=== PATIENT | female | born 1970 | race Caucasian/White ===

== ENCOUNTER 2017-11-05 21:54 | Inpatient (IN) | payer OTHER ==
[2017-11-05] MEDS ORDERED: DOCUSATE SODIUM 100 MG CAP PO (23:30)
[2017-11-05] MEDS ORDERED: NITROGLYCERIN (SL) 0.4 MG TAB SL (23:30)
[2017-11-05] MEDS ORDERED: morphine 2 MG INJ IV (23:30)
[2017-11-05] MEDS ORDERED: ACETAMINOPHEN 325 MG TAB PO (23:30)
[2017-11-05] MEDS ORDERED: ONDANSETRON 4 MG INJ IV (23:30)
[2017-11-05] MEDS ORDERED: BISACODYL (EC) 5 MG TAB PO (23:30)
[2017-11-05] MEDS: METOPROLOL 5 MG INJ IV (23:39)
[2017-11-05] MEDS: NACL 0.9% 3 ML SYG IV (23:42)
[2017-11-05 23:53] LABS: ADD MAN DIFF? NO
[2017-11-05 23:55] LABS: BASOPHILS % 0.2 % (0.0-2.0); HEMATOCRIT 44.1 % (37.0-47.0); HEMOGLOBIN 14.3 g/dl (12.0-16.0); LYMPHOCYTES % 6.1 % (15.0-51.0); MEAN CORPUSCULAR HEMOGLOBIN 27.7 pg (29.0-33.0); MEAN CORPUSCULAR HGB CONC 32.4 g/dl (32.0-37.0); MEAN CORPUSCULAR VOLUME 85.5 fl (82.0-101.0); MEAN PLATELET VOLUME 11.8 fl (7.4-10.4); MONOCYTE # 0.8 10^3/ul (0.3-0.9); MONOCYTES % 4.5 % (0.0-11.0); NEUTROPHIL # 14.8 10^3/ul (1.6-7.5); NEUTROPHILS % 88.2 % (39.0-77.0); PLATELET COUNT 440 10^3/UL (140-415); RED BLOOD COUNT 5.16 10^6/ul (4.20-5.40); RED CELL DISTRIBUTION WIDTH 17.9 % (11.5-14.5)
[2017-11-05 23:55] LABS: WHITE BLOOD COUNT 16.8 10^3/ul (4.8-10.8)
[2017-11-06 00:05] LABS: HEMOGLOBIN A1C 7.2 % (0-5.9)
[2017-11-06 00:14] LABS: ALANINE AMINOTRANSFERASE 25 IU/L (13-69); ALBUMIN 3.8 g/dl (3.3-4.9); ALBUMIN/GLOBULIN RATIO 1.11; ALKALINE PHOSPHATASE 108 IU/L (42-121); ASPARTATE AMINO TRANSFERASE 14 IU/L (15-46); BILIRUBIN,INDIRECT 0.4 mg/dl (0-1.1); BILIRUBIN,TOTAL 0.4 mg/dl (0.2-1.3); BLOOD UREA NITROGEN 43 mg/dl (7-20); CALCIUM 10.2 mg/dl (8.4-10.2); CHLORIDE 80 mmol/L (97-110); CREATININE 0.96 mg/dl (0.44-1.00); GLUCOSE 248 mg/dl (70-220); MAGNESIUM 1.5 mg/dl (1.7-2.5); POTASSIUM 3.2 mmol/L (3.5-5.1); SODIUM 138 mmol/L (135-144); TOTAL PROTEIN 7.2 g/dl (6.1-8.1)
[2017-11-06 00:24] LABS: B-TYPE NATRIURETIC PEPTIDE 2060 PG/ML (0-125)
[2017-11-06 00:26] LABS: CK-MB 0.53 ng/ml (0.0-2.4)
[2017-11-06 00:38] LABS: ANION GAP 16 (8-16); CREATINE KINASE < 20 IU/L (23-200); TROPONIN-I < 0.012 ng/ml (0.00-0.12)
[2017-11-06 00:40] LABS: CARBON DIOXIDE 45 mmol/L (21-31)
[2017-11-06 00:45] LABS: THYROID STIMULATING HORMONE 0.947 MIU/L (0.465-4.680)
[2017-11-06] MEDS ORDERED: DEXTROSE 50% 50 ML SYRINGE IV ×2 (04:00)
[2017-11-06] MEDS ORDERED: GLUCOSE GEL 15 GRAM TUBE PO ×2 (04:00)
[2017-11-06] MEDS: INSULIN ASPART [NOVOLOG] 3 ML PEN SC ×6 (04:00→22:16)
[2017-11-06] MEDS ORDERED: GLUCAGON 1 MG INJ IM (04:00)
[2017-11-06] MEDS ORDERED: GLUCOSE GEL 15 GRAM TUBE BUCCAL (04:00)
[2017-11-06] MEDS: ALBUTEROL/IPRATROPIUM (NEB) 3 ML AMP HHN ×4 (09:00→20:47)
[2017-11-06] MEDS: METOPROLOL 5 MG INJ IV (09:19)
[2017-11-06] MEDS: predniSONE 20 MG TAB PO (09:19)
[2017-11-06] MEDS: POTASSIUM CHLORIDE (SR) 20 MEQ TAB PO (09:19)
[2017-11-06 09:47] LABS: ADD MAN DIFF? NO
[2017-11-06 09:55] LABS: BASOPHILS % 0.1 % (0.0-2.0); HEMATOCRIT 45.1 % (37.0-47.0); HEMOGLOBIN 14.8 g/dl (12.0-16.0); LYMPHOCYTES # 1.4 10^3/ul (0.8-2.9); LYMPHOCYTES % 8.1 % (15.0-51.0); MEAN CORPUSCULAR HEMOGLOBIN 28.2 pg (29.0-33.0); MEAN CORPUSCULAR HGB CONC 32.8 g/dl (32.0-37.0); MEAN CORPUSCULAR VOLUME 86.1 fl (82.0-101.0); MEAN PLATELET VOLUME 12.1 fl (7.4-10.4); MONOCYTE # 0.8 10^3/ul (0.3-0.9); MONOCYTES % 4.7 % (0.0-11.0); NEUTROPHIL # 14.4 10^3/ul (1.6-7.5); NEUTROPHILS % 86.4 % (39.0-77.0); PLATELET COUNT 452 10^3/UL (140-415); RED BLOOD COUNT 5.24 10^6/ul (4.20-5.40); RED CELL DISTRIBUTION WIDTH 17.5 % (11.5-14.5)
[2017-11-06 09:55] LABS: WHITE BLOOD COUNT 16.7 10^3/ul (4.8-10.8)
[2017-11-06 10:13] LABS: BLOOD UREA NITROGEN 46 mg/dl (7-20); CALCIUM 10.4 mg/dl (8.4-10.2); CHLORIDE 81 mmol/L (97-110); CREATININE 0.86 mg/dl (0.44-1.00); GLUCOSE 146 mg/dl (70-220); POTASSIUM 3.8 mmol/L (3.5-5.1); SODIUM 139 mmol/L (135-144)
[2017-11-06 10:14] LABS: CREATINE KINASE < 20 IU/L (23-200)
[2017-11-06 10:20] LABS: ANION GAP 17 (8-16)
[2017-11-06 10:24] LABS: CARBON DIOXIDE 45 mmol/L (21-31); CK-MB 0.68 ng/ml (0.0-2.4)
[2017-11-06 10:38] LABS: TROPONIN-I < 0.012 ng/ml (0.00-0.12)
[2017-11-06] MEDS: APIXABAN 5 MG TABLET PO ×2 (13:30→22:10)
[2017-11-06] MEDS: DIGOXIN 500 MCG INJ IV ×2 (14:40→22:09)
[2017-11-06] MEDS: FUROSEMIDE 20 MG INJ IV (17:39)
[2017-11-06] MEDS: METOPROLOL (XL) 25 MG TAB PO (22:10)
[2017-11-06] MEDS: INSULIN GLARGINE [LANtus] 3 ML PEN SC (22:18)
[2017-11-07] MEDS: ALBUTEROL/IPRATROPIUM (NEB) 3 ML AMP HHN ×6 (00:25→20:00)
[2017-11-07] MEDS ORDERED: INSULIN ASPART [NOVOLOG] 3 ML PEN SC ×2 (01:00→07:30)
[2017-11-07] MEDS ORDERED: ACCU-CHEK XX ×3 (02:00)
[2017-11-07] MEDS: FUROSEMIDE 20 MG INJ IV (05:50)
[2017-11-07 08:12] LABS: ADD MAN DIFF? NO
[2017-11-07 08:15] LABS: BASOPHILS % 0.1 % (0.0-2.0); EOSINOPHILS % 0.1 % (0.0-7.0); HEMATOCRIT 49.7 % (37.0-47.0); HEMOGLOBIN 16.3 g/dl (12.0-16.0); LYMPHOCYTES # 1.7 10^3/ul (0.8-2.9); LYMPHOCYTES % 10.7 % (15.0-51.0); MEAN CORPUSCULAR HEMOGLOBIN 28.1 pg (29.0-33.0); MEAN CORPUSCULAR HGB CONC 32.8 g/dl (32.0-37.0); MEAN CORPUSCULAR VOLUME 85.5 fl (82.0-101.0); MEAN PLATELET VOLUME 11.8 fl (7.4-10.4); MONOCYTE # 1.1 10^3/ul (0.3-0.9); MONOCYTES % 6.8 % (0.0-11.0); NEUTROPHIL # 13.1 10^3/ul (1.6-7.5); NEUTROPHILS % 81.7 % (39.0-77.0); PLATELET COUNT 492 10^3/UL (140-415); RED BLOOD COUNT 5.81 10^6/ul (4.20-5.40); RED CELL DISTRIBUTION WIDTH 18.7 % (11.5-14.5)
[2017-11-07] MEDS: METOPROLOL (XL) 25 MG TAB PO ×3 (09:00→20:45)
[2017-11-07] MEDS: LISINOPRIL 5 MG TAB PO (09:00)
[2017-11-07] MEDS: predniSONE 20 MG TAB PO (09:32)
[2017-11-07] MEDS: APIXABAN 5 MG TABLET PO ×2 (09:33→20:45)
[2017-11-07] MEDS: Insulin NOVOLOG SS MODERATE Algorithm (SS with meals and bedtime) SC ×4 (09:37→20:50)
[2017-11-07] MEDS: INSULIN ASPART [NOVOLOG] 3 ML PEN SC ×3 (09:38→17:23)
[2017-11-07 09:41] LABS: PHOSPHORUS 4.5 mg/dl (2.5-4.9)
[2017-11-07 09:41] LABS: CHOL/HDL RATIO 2.9 RATIO; CHOLESTEROL 137 mg/dl (100-200); HDL CHOLESTEROL 47 mg/dl (37-92); LDL CHOLESTEROL,CALCULATED 58 mg/dl; MAGNESIUM 1.9 mg/dl (1.7-2.5); TRIGLYCERIDES 162 mg/dl (0-149)
[2017-11-07 09:50] LABS: B-TYPE NATRIURETIC PEPTIDE 803 PG/ML (0-125)
[2017-11-07 10:18] LABS: ALANINE AMINOTRANSFERASE 20 IU/L (13-69); ALBUMIN/GLOBULIN RATIO 1.05; ALKALINE PHOSPHATASE 120 IU/L (42-121); ASPARTATE AMINO TRANSFERASE 24 IU/L (15-46); BILIRUBIN,INDIRECT 0.9 mg/dl (0-1.1); BILIRUBIN,TOTAL 0.9 mg/dl (0.2-1.3); BLOOD UREA NITROGEN 50 mg/dl (7-20); CALCIUM 10.6 mg/dl (8.4-10.2); CHLORIDE 81 mmol/L (97-110); CREATININE 0.98 mg/dl (0.44-1.00); GLUCOSE 137 mg/dl (70-220); POTASSIUM 3.5 mmol/L (3.5-5.1); SODIUM 139 mmol/L (135-144); TOTAL PROTEIN 7.8 g/dl (6.1-8.1)
[2017-11-07 10:27] LABS: ANION GAP 19 (8-16)
[2017-11-07 10:28] LABS: CARBON DIOXIDE 43 mmol/L (21-31)
[2017-11-07] MEDS: DILTIAZEM 25 MG INJ IV ×2 (17:16→22:15)
[2017-11-07] MEDS: INSULIN GLARGINE [LANtus] 3 ML PEN SC (20:47)
[2017-11-08] MEDS: ALBUTEROL/IPRATROPIUM (NEB) 3 ML AMP HHN ×6 (00:52→20:21)
[2017-11-08] MEDS: ACCU-CHEK XX (03:00)
[2017-11-08] MEDS: Insulin NOVOLOG SS MODERATE Algorithm (SS with meals and bedtime) SC ×4 (08:00→21:07)
[2017-11-08] MEDS: APIXABAN 5 MG TABLET PO ×2 (08:48→21:05)
[2017-11-08] MEDS: METOPROLOL (XL) 25 MG TAB PO ×2 (08:50→21:05)
[2017-11-08] MEDS: LISINOPRIL 5 MG TAB PO (08:50)
[2017-11-08] MEDS: FUROSEMIDE 20 MG INJ IV (08:52)
[2017-11-08 08:59] LABS: ADD MAN DIFF? NO
[2017-11-08 09:02] LABS: BASOPHILS % 0.1 % (0.0-2.0); EOSINOPHILS % 0.1 % (0.0-7.0); HEMATOCRIT 50.8 % (37.0-47.0); HEMOGLOBIN 16.8 g/dl (12.0-16.0); LYMPHOCYTES # 1.9 10^3/ul (0.8-2.9); LYMPHOCYTES % 12.1 % (15.0-51.0); MEAN CORPUSCULAR HEMOGLOBIN 28.3 pg (29.0-33.0); MEAN CORPUSCULAR HGB CONC 33.1 g/dl (32.0-37.0); MEAN CORPUSCULAR VOLUME 85.5 fl (82.0-101.0); MEAN PLATELET VOLUME 12.2 fl (7.4-10.4); MONOCYTE # 1.3 10^3/ul (0.3-0.9); MONOCYTES % 8.4 % (0.0-11.0); NEUTROPHIL # 12.2 10^3/ul (1.6-7.5); NEUTROPHILS % 78.7 % (39.0-77.0); PLATELET COUNT 447 10^3/UL (140-415); RED BLOOD COUNT 5.94 10^6/ul (4.20-5.40); RED CELL DISTRIBUTION WIDTH 17.3 % (11.5-14.5)
[2017-11-08 09:02] LABS: WHITE BLOOD COUNT 15.5 10^3/ul (4.8-10.8)
[2017-11-08] MEDS: INSULIN ASPART [NOVOLOG] 3 ML PEN SC ×3 (09:02→17:18)
[2017-11-08 09:20] LABS: PHOSPHORUS 4.2 mg/dl (2.5-4.9)
[2017-11-08 09:24] LABS: BLOOD UREA NITROGEN 54 mg/dl (7-20); CALCIUM 9.8 mg/dl (8.4-10.2); CHLORIDE 86 mmol/L (97-110); CREATININE 1.01 mg/dl (0.44-1.00); GLUCOSE 118 mg/dl (70-220); POTASSIUM 3.5 mmol/L (3.5-5.1); SODIUM 138 mmol/L (135-144)
[2017-11-08 09:27] LABS: ANION GAP 15 (8-16)
[2017-11-08 09:33] LABS: CARBON DIOXIDE 41 mmol/L (21-31)
[2017-11-08 10:25] LABS: AMPHETAMINE/METHAMPHETAMINE Negative (NEGATIVE)
[2017-11-08 10:26] LABS: BARBITURATES Negative (NEGATIVE); BENZODIAZEPINES Negative (NEGATIVE); CANNABINOIDS Negative (NEGATIVE); COCAINE Negative (NEGATIVE); OPIATES Negative (NEGATIVE)
[2017-11-08] MEDS: DILTIAZEM 25 MG INJ IV (13:48)
[2017-11-08] MEDS: DIGOXIN 500 MCG INJ IV (18:09)
[2017-11-08] MEDS: INSULIN GLARGINE [LANtus] 3 ML PEN SC (21:08)
[2017-11-09] MEDS: ALBUTEROL/IPRATROPIUM (NEB) 3 ML AMP HHN ×6 (00:33→20:40)
[2017-11-09] MEDS: ACCU-CHEK XX (02:39)
[2017-11-09] MEDS: Insulin NOVOLOG SS MODERATE Algorithm (SS with meals and bedtime) SC ×4 (08:00→21:36)
[2017-11-09 09:00] LABS: ADD MAN DIFF? NO
[2017-11-09] MEDS: METOPROLOL (XL) 25 MG TAB PO ×2 (09:00→21:34)
[2017-11-09] MEDS: APIXABAN 5 MG TABLET PO ×2 (09:00→21:48)
[2017-11-09] MEDS: FUROSEMIDE 20 MG INJ IV (09:01)
[2017-11-09] MEDS: LISINOPRIL 5 MG TAB PO (09:01)
[2017-11-09 09:03] LABS: WHITE BLOOD COUNT 13.1 10^3/ul (4.8-10.8)
[2017-11-09 09:03] LABS: BASOPHILS % 0.2 % (0.0-2.0); EOSINOPHILS # 0.2 10^3/ul (0.0-0.5); EOSINOPHILS % 1.4 % (0.0-7.0); HEMATOCRIT 51.7 % (37.0-47.0); LYMPHOCYTES # 1.9 10^3/ul (0.8-2.9); LYMPHOCYTES % 14.1 % (15.0-51.0); MEAN CORPUSCULAR HGB CONC 32.9 g/dl (32.0-37.0); MEAN PLATELET VOLUME 12.2 fl (7.4-10.4); MONOCYTE # 1.1 10^3/ul (0.3-0.9); MONOCYTES % 8.3 % (0.0-11.0); NEUTROPHIL # 9.9 10^3/ul (1.6-7.5); NEUTROPHILS % 75.5 % (39.0-77.0); PLATELET COUNT 417 10^3/UL (140-415); RED BLOOD COUNT 6.08 10^6/ul (4.20-5.40); RED CELL DISTRIBUTION WIDTH 17.6 % (11.5-14.5)
[2017-11-09] MEDS: INSULIN ASPART [NOVOLOG] 3 ML PEN SC ×3 (09:03→17:48)
[2017-11-09 09:19] LABS: MAGNESIUM 1.9 mg/dl (1.7-2.5)
[2017-11-09 09:19] LABS: PHOSPHORUS 3.6 mg/dl (2.5-4.9)
[2017-11-09 09:27] LABS: BLOOD UREA NITROGEN 53 mg/dl (7-20); CALCIUM 9.4 mg/dl (8.4-10.2); CHLORIDE 87 mmol/L (97-110); CREATININE 1.11 mg/dl (0.44-1.00); GLUCOSE 143 mg/dl (70-220); POTASSIUM 3.9 mmol/L (3.5-5.1); SODIUM 135 mmol/L (135-144)
[2017-11-09 09:33] LABS: ANION GAP 14 (8-16)
[2017-11-09 09:35] LABS: CARBON DIOXIDE 38 mmol/L (21-31)
[2017-11-09 13:03] LABS: AADO2 Arterial 88.3 mmHg (7.0-24.0); Allen Test ACCEPTAB; Arterial Base Excess 11.8 mmol/L (-3.0-3); Arterial Blood Gas Oxygen Sat 94.7 mmHG (95.0-98.0); Arterial COHb 0.7 % (0.0-3.0); Arterial Fraction of Oxyhgb 93.8 % (93.0-99.0); Arterial HCO3 36.8 mmol/L (22.0-26.0); Arterial MetHb 0.3 % (0.0-1.5); Arterial Total Hemglobin 17.9 g/dl (12.0-18.0); Arterial pCO2 46.6 mmhg (35-45); MODE NASAL CANNULA; Site Right Radial
[2017-11-09] MEDS: DIGOXIN 0.125 MG TAB PO (13:19)
[2017-11-09] MEDS: INSULIN GLARGINE [LANtus] 3 ML PEN SC (21:35)
[2017-11-10] MEDS: ALBUTEROL/IPRATROPIUM (NEB) 3 ML AMP HHN ×4 (00:44→13:00)
[2017-11-10] MEDS: ACCU-CHEK XX (02:39)
[2017-11-10 08:15] LABS: ADD MAN DIFF? NO
[2017-11-10 08:19] LABS: WHITE BLOOD COUNT 11.6 10^3/ul (4.8-10.8)
[2017-11-10 08:19] LABS: BASOPHILS % 0.2 % (0.0-2.0); EOSINOPHILS # 0.3 10^3/ul (0.0-0.5); EOSINOPHILS % 2.2 % (0.0-7.0); HEMATOCRIT 48.3 % (37.0-47.0); HEMOGLOBIN 15.9 g/dl (12.0-16.0); LYMPHOCYTES % 17.5 % (15.0-51.0); MEAN CORPUSCULAR HGB CONC 32.9 g/dl (32.0-37.0); MEAN PLATELET VOLUME 12.4 fl (7.4-10.4); NEUTROPHIL # 8.2 10^3/ul (1.6-7.5); NEUTROPHILS % 70.4 % (39.0-77.0); PLATELET COUNT 370 10^3/UL (140-415); RED BLOOD COUNT 5.68 10^6/ul (4.20-5.40); RED CELL DISTRIBUTION WIDTH 18.7 % (11.5-14.5)
[2017-11-10] MEDS: METOPROLOL (XL) 25 MG TAB PO (08:37)
[2017-11-10] MEDS: LISINOPRIL 5 MG TAB PO (08:37)
[2017-11-10] MEDS: APIXABAN 5 MG TABLET PO (08:37)
[2017-11-10] MEDS: DILTIAZEM (CD) 120 MG CAP PO (08:38)
[2017-11-10] MEDS: FUROSEMIDE 20 MG INJ IV (08:38)
[2017-11-10 08:44] LABS: BLOOD UREA NITROGEN 46 mg/dl (7-20); CALCIUM 9.4 mg/dl (8.4-10.2); CARBON DIOXIDE 36 mmol/L (21-31); CHLORIDE 91 mmol/L (97-110); CREATININE 1.02 mg/dl (0.44-1.00); GLUCOSE 141 mg/dl (70-220); SODIUM 135 mmol/L (135-144)
[2017-11-10 08:45] LABS: ANION GAP 12 (8-16)
[2017-11-10] MEDS: Insulin NOVOLOG SS MODERATE Algorithm (SS with meals and bedtime) SC ×2 (08:45→12:16)
[2017-11-10] MEDS: INSULIN ASPART [NOVOLOG] 3 ML PEN SC ×2 (08:46→12:17)
[2017-11-10] MEDS: DIGOXIN 0.125 MG TAB PO (12:30)
[2017-11-10] MEDS: LORAZEPAM 0.5 MG TAB PO (12:30)
== END 2017-11-10 14:30 | disposition left against medical advice (07) | DRG 189 ==
LOC: MS4 21:54
DX: J96.01 Acute respiratory failure with hypoxia (principal); I50.23 Acute on chronic systolic (congestive) heart failure; I42.9 Cardiomyopathy, unspecified; E66.2 Morbid (severe) obesity with alveolar hypoventilation; Z68.43 Body mass index [BMI] 50.0-59.9, adult; J44.9 Chronic obstructive pulmonary disease, unspecified; I48.91 Unspecified atrial fibrillation; D72.829 Elevated white blood cell count, unspecified; E11.9 Type 2 diabetes mellitus without complications; I11.0 Hypertensive heart disease with heart failure; E78.5 Hyperlipidemia, unspecified; E87.6 Hypokalemia; F41.9 Anxiety disorder, unspecified; I69.320 Aphasia following cerebral infarction; Z91.19 Patient's noncompliance with other medical treatment and regimen; Z87.891 Personal history of nicotine dependence; Z79.4 Long term (current) use of insulin
CPT/HCPCS: 36600; 71045; 80048; 80053; 80061; 80307; 82550; 82553; 82803; 82962; 83036; 83735; 83880; 84100; 84443; 84484; 84703; 85025; 87081; 93005; 93306; 94640; 94664; J1940

== ENCOUNTER 2018-07-17 16:26 | Inpatient (IN) | payer OTHER ==
[2018-07-17] MEDS ORDERED: NON-FORMULARY/PATIENT OWN MED (Albuterol/Ipratropium* (Combivent Respimat*) 2 PUFF) INHALATION (17:00)
[2018-07-17] MEDS ORDERED: NACL 0.9% 3 ML SYG IV (17:00)
[2018-07-17] MEDS ORDERED: ALBUTEROL 0.083% (NEB) 2.5 MG/3 ML AMP HHN (17:30)
[2018-07-17] MEDS ORDERED: DEXTROSE 50% 50 ML SYRINGE IV ×2 (18:00)
[2018-07-17] MEDS ORDERED: GLUCAGON 1 MG INJ IM (18:00)
[2018-07-17] MEDS ORDERED: GLUCOSE GEL 15 GRAM TUBE BUCCAL (18:00)
[2018-07-17] MEDS ORDERED: GLUCOSE GEL 15 GRAM TUBE PO ×2 (18:00)
[2018-07-17] MEDS ORDERED: IPRATROPIUM (NEB) 0.5 MG/2.5 ML AMP INH (18:30)
[2018-07-17] MEDS: INSULIN ASPART [NOVOLOG] 3 ML PEN SC ×2 (18:33→21:00)
[2018-07-17 19:06] LABS: ADD MAN DIFF? NO
[2018-07-17 19:25] LABS: ALBUMIN 3.7 g/dl (3.3-4.9); ANION GAP 11 (5-13); BLOOD UREA NITROGEN 36 mg/dl (7-20); CALCIUM 9.6 mg/dl (8.4-10.2); CARBON DIOXIDE 32 mmol/L (21-31); CHLORIDE 98 mmol/L (97-110); CREATININE 1.27 mg/dl (0.44-1.00); GLUCOSE 173 mg/dl (70-220); MAGNESIUM 1.7 mg/dl (1.7-2.5); PHOSPHORUS 3.3 mg/dl (2.5-4.9); POTASSIUM 4.5 mmol/L (3.5-5.1); SODIUM 141 mmol/L (135-144)
[2018-07-17 19:34] LABS: B-TYPE NATRIURETIC PEPTIDE 3290 PG/ML (0-125)
[2018-07-17] MEDS: IPRATROPIUM (NEB) 0.5 MG/2.5 ML AMP INH (20:01)
[2018-07-17] MEDS: ALBUTEROL 0.083% (NEB) 2.5 MG/3 ML AMP HHN (20:05)
[2018-07-17 20:10] LABS: ABNORMAL IP MESSAGE 1; BASOPHILS % 0.1 % (0.0-2.0); HEMATOCRIT 43.8 % (37.0-47.0); HEMOGLOBIN 12.8 g/dl (12.0-16.0); LYMPHOCYTES # 0.5 10^3/ul (0.8-2.9); LYMPHOCYTES % 3.4 % (15.0-51.0); MEAN CORPUSCULAR HEMOGLOBIN 24.4 pg (29.0-33.0); MEAN CORPUSCULAR HGB CONC 29.2 g/dl (32.0-37.0); MEAN CORPUSCULAR VOLUME 83.6 fl (82.0-101.0); MEAN PLATELET VOLUME 11.5 fl (7.4-10.4); MONOCYTE # 0.4 10^3/ul (0.3-0.9); MONOCYTES % 2.2 % (0.0-11.0); NEUTROPHILS % 93.6 % (39.0-77.0); PLATELET COUNT 284 10^3/UL (140-415); RED BLOOD COUNT 5.24 10^6/ul (4.20-5.40)
[2018-07-17 20:11] LABS: POSITIVE DIFF @See below
[2018-07-17] MEDS: CEFEPIME 2GM/50 ML (PMX) 50 ML IVPB (20:42)
[2018-07-17] MEDS: SALINE 0.65% 45 ML NAS SPRAY NASAL (20:43)
[2018-07-17] MEDS: APIXABAN 5 MG TABLET PO (20:43)
[2018-07-17] MEDS: AMIODARONE 200 MG TAB PO (20:43)
[2018-07-17] MEDS: RISPERIDONE 1 MG TAB PO (20:43)
[2018-07-17] MEDS: INSULIN GLARGINE [LANTus] (100 UNITS/ML) SYG SC (22:14)
[2018-07-18] MEDS: ACCU-CHEK XX (02:00)
[2018-07-18 06:00] LABS: ADD MAN DIFF? NO
[2018-07-18 06:01] LABS: WHITE BLOOD COUNT 15.2 10^3/ul (4.8-10.8)
[2018-07-18 06:01] LABS: ABNORMAL IP MESSAGE 1; BASOPHILS % 0.1 % (0.0-2.0); HEMATOCRIT 42.1 % (37.0-47.0); HEMOGLOBIN 12.1 g/dl (12.0-16.0); LYMPHOCYTES # 0.7 10^3/ul (0.8-2.9); LYMPHOCYTES % 4.6 % (15.0-51.0); MEAN CORPUSCULAR HGB CONC 28.7 g/dl (32.0-37.0); MEAN CORPUSCULAR VOLUME 83.5 fl (82.0-101.0); MEAN PLATELET VOLUME 11.4 fl (7.4-10.4); MONOCYTE # 0.8 10^3/ul (0.3-0.9); MONOCYTES % 4.9 % (0.0-11.0); NEUTROPHIL # 13.6 10^3/ul (1.6-7.5); NEUTROPHILS % 89.7 % (39.0-77.0); PLATELET COUNT 235 10^3/UL (140-415); RED BLOOD COUNT 5.04 10^6/ul (4.20-5.40); RED CELL DISTRIBUTION WIDTH 21.4 % (11.5-14.5)
[2018-07-18] MEDS: PANTOPRAZOLE (EC) 40 MG TAB PO (06:10)
[2018-07-18 06:27] LABS: POSITIVE DIFF @See below
[2018-07-18 06:33] LABS: LACTIC ACID 1.9 mmol/L (0.5-2.0)
[2018-07-18 06:48] LABS: ALBUMIN 3.4 g/dl (3.3-4.9); ANION GAP 10 (5-13); BLOOD UREA NITROGEN 39 mg/dl (7-20); CALCIUM 9.5 mg/dl (8.4-10.2); CARBON DIOXIDE 32 mmol/L (21-31); CHLORIDE 99 mmol/L (97-110); CREATININE 1.19 mg/dl (0.44-1.00); GLUCOSE 179 mg/dl (70-220); MAGNESIUM 1.7 mg/dl (1.7-2.5); PHOSPHORUS 3.5 mg/dl (2.5-4.9); POTASSIUM 4.3 mmol/L (3.5-5.1); SODIUM 141 mmol/L (135-144)
[2018-07-18] MEDS: IPRATROPIUM (NEB) 0.5 MG/2.5 ML AMP INH ×3 (07:52→19:44)
[2018-07-18] MEDS: ALBUTEROL 0.083% (NEB) 2.5 MG/3 ML AMP HHN ×3 (07:52→19:44)
[2018-07-18] MEDS: INSULIN ASPART [NOVOLOG] 3 ML PEN SC ×4 (08:04→20:20)
[2018-07-18] MEDS ORDERED: FUROSEMIDE 40 MG INJ IV ×2 (09:00)
[2018-07-18] MEDS: AMIODARONE 200 MG TAB PO ×2 (09:00→20:09)
[2018-07-18] MEDS: RISPERIDONE 1 MG TAB PO ×2 (09:00→20:09)
[2018-07-18] MEDS: APIXABAN 5 MG TABLET PO ×2 (09:00→20:09)
[2018-07-18] MEDS: ATORVASTATIN 40 MG TAB PO (09:00)
[2018-07-18] MEDS: AMLODIPINE 5 MG TAB PO (09:00)
[2018-07-18] MEDS: SALINE 0.65% 45 ML NAS SPRAY NASAL ×2 (09:00→20:10)
[2018-07-18] MEDS: METOPROLOL (XL) 100 MG TAB PO (09:00)
[2018-07-18] MEDS: BUMETANIDE 1 MG TAB PO (09:30)
[2018-07-18] MEDS: CEFEPIME 2GM/50 ML (PMX) 50 ML IVPB ×2 (09:51→20:10)
[2018-07-18] MEDS: FUROSEMIDE 40 MG INJ IV (09:52)
[2018-07-18] MEDS: LORAZEPAM 2 MG INJ IV (12:11)
[2018-07-18] MEDS: INSULIN GLARGINE [LANTus] (100 UNITS/ML) SYG SC (20:20)
[2018-07-18] MEDS: METOPROLOL 5 MG INJ IV (23:50)
[2018-07-19] MEDS: ACCU-CHEK XX (02:00)
[2018-07-19] MEDS: METOPROLOL 5 MG INJ IV ×2 (02:23→08:55)
[2018-07-19 05:38] LABS: ADD MAN DIFF? NO
[2018-07-19 05:48] LABS: ABNORMAL IP MESSAGE 1; BASOPHILS % 0.1 % (0.0-2.0); EOSINOPHILS # 0.1 10^3/ul (0.0-0.5); EOSINOPHILS % 0.9 % (0.0-7.0); HEMATOCRIT 43.3 % (37.0-47.0); HEMOGLOBIN 12.4 g/dl (12.0-16.0); LYMPHOCYTES # 0.9 10^3/ul (0.8-2.9); LYMPHOCYTES % 9.1 % (15.0-51.0); MEAN CORPUSCULAR HGB CONC 28.6 g/dl (32.0-37.0); MEAN CORPUSCULAR VOLUME 83.8 fl (82.0-101.0); MEAN PLATELET VOLUME 11.4 fl (7.4-10.4); MONOCYTE # 0.7 10^3/ul (0.3-0.9); MONOCYTES % 7.2 % (0.0-11.0); NEUTROPHILS % 82.4 % (39.0-77.0); PLATELET COUNT 204 10^3/UL (140-415); RED BLOOD COUNT 5.17 10^6/ul (4.20-5.40); RED CELL DISTRIBUTION WIDTH 20.9 % (11.5-14.5)
[2018-07-19 05:48] LABS: WHITE BLOOD COUNT 9.7 10^3/ul (4.8-10.8)
[2018-07-19 05:50] LABS: POSITIVE DIFF @See below
[2018-07-19] MEDS: PANTOPRAZOLE (EC) 40 MG TAB PO (06:50)
[2018-07-19 07:38] LABS: ALBUMIN 3.6 g/dl (3.3-4.9); ANION GAP 9 (5-13); BLOOD UREA NITROGEN 39 mg/dl (7-20); CALCIUM 9.7 mg/dl (8.4-10.2); CARBON DIOXIDE 34 mmol/L (21-31); CHLORIDE 100 mmol/L (97-110); CREATININE 1.13 mg/dl (0.44-1.00); GLUCOSE 116 mg/dl (70-220); MAGNESIUM 1.8 mg/dl (1.7-2.5); POTASSIUM 4.2 mmol/L (3.5-5.1); SODIUM 143 mmol/L (135-144)
[2018-07-19] MEDS: INSULIN ASPART [NOVOLOG] 3 ML PEN SC ×4 (07:45→22:00)
[2018-07-19] MEDS: ALBUTEROL 0.083% (NEB) 2.5 MG/3 ML AMP HHN ×3 (08:15→20:15)
[2018-07-19] MEDS: IPRATROPIUM (NEB) 0.5 MG/2.5 ML AMP INH ×3 (08:18→20:15)
[2018-07-19] MEDS: AMIODARONE 200 MG TAB PO (08:47)
[2018-07-19] MEDS: ATORVASTATIN 40 MG TAB PO (08:47)
[2018-07-19] MEDS: APIXABAN 5 MG TABLET PO ×2 (08:48→21:44)
[2018-07-19] MEDS: AMLODIPINE 5 MG TAB PO (08:48)
[2018-07-19] MEDS: METOPROLOL (XL) 100 MG TAB PO (08:49)
[2018-07-19] MEDS: RISPERIDONE 1 MG TAB PO ×2 (08:49→21:44)
[2018-07-19] MEDS: BUMETANIDE 1 MG TAB PO (08:49)
[2018-07-19] MEDS: SALINE 0.65% 45 ML NAS SPRAY NASAL ×2 (08:50→21:46)
[2018-07-19] MEDS: FUROSEMIDE 40 MG INJ IV (08:53)
[2018-07-19] MEDS: CEFEPIME 2GM/50 ML (PMX) 50 ML IVPB ×2 (09:02→21:50)
[2018-07-19 10:57] LABS: ALANINE AMINOTRANSFERASE 34 IU/L (13-69); ALBUMIN 3.5 g/dl (3.3-4.9); ALKALINE PHOSPHATASE 124 IU/L (42-121); ASPARTATE AMINO TRANSFERASE 24 IU/L (15-46); BILIRUBIN,INDIRECT 0.6 mg/dl (0-1.1); BILIRUBIN,TOTAL 0.6 mg/dl (0.2-1.3)
[2018-07-19 11:02] LABS: DIGOXIN 0.5 ng/ml (1.0-2.0)
[2018-07-19] MEDS: BUMETANIDE 1 MG INJ IV ×2 (12:06→18:00)
[2018-07-19] MEDS: TIOTROPIUM 18 MCG CAPSULE INHA DEV INH (13:26)
[2018-07-19] MEDS: DIGOXIN 0.125 MG TAB PO (13:26)
[2018-07-19] MEDS: DILTIAZEM 60 MG TAB PO ×2 (13:27→21:44)
[2018-07-19] MEDS: METHYLPREDNISOLONE 40 MG INJ IV ×2 (13:30→21:46)
[2018-07-19] MEDS: MONTELUKAST 10 MG TAB PO (21:44)
[2018-07-19] MEDS: INSULIN GLARGINE [LANTus] (100 UNITS/ML) SYG SC (21:48)
[2018-07-20] MEDS: ACCU-CHEK XX (02:42)
[2018-07-20] MEDS: BUMETANIDE 1 MG INJ IV ×2 (05:34→17:48)
[2018-07-20] MEDS: PANTOPRAZOLE (EC) 40 MG TAB PO (05:35)
[2018-07-20 05:42] LABS: ADD MAN DIFF? NO
[2018-07-20 05:47] LABS: BASOPHILS % 0.1 % (0.0-2.0); HEMATOCRIT 43.7 % (37.0-47.0); HEMOGLOBIN 12.9 g/dl (12.0-16.0); LYMPHOCYTES # 0.8 10^3/ul (0.8-2.9); LYMPHOCYTES % 8.1 % (15.0-51.0); MEAN CORPUSCULAR HEMOGLOBIN 24.3 pg (29.0-33.0); MEAN CORPUSCULAR HGB CONC 29.5 g/dl (32.0-37.0); MEAN CORPUSCULAR VOLUME 82.3 fl (82.0-101.0); MEAN PLATELET VOLUME 11.6 fl (7.4-10.4); MONOCYTE # 0.1 10^3/ul (0.3-0.9); MONOCYTES % 1.3 % (0.0-11.0); NEUTROPHIL # 8.3 10^3/ul (1.6-7.5); NEUTROPHILS % 89.8 % (39.0-77.0); PLATELET COUNT 185 10^3/UL (140-415); RED BLOOD COUNT 5.31 10^6/ul (4.20-5.40); RED CELL DISTRIBUTION WIDTH 20.6 % (11.5-14.5)
[2018-07-20 05:47] LABS: WHITE BLOOD COUNT 9.2 10^3/ul (4.8-10.8)
[2018-07-20 06:10] LABS: ANION GAP 9 (5-13); BLOOD UREA NITROGEN 39 mg/dl (7-20); CALCIUM 9.6 mg/dl (8.4-10.2); CARBON DIOXIDE 38 mmol/L (21-31); CHLORIDE 93 mmol/L (97-110); CREATININE 0.94 mg/dl (0.44-1.00); Estimated GFR > 60 mL/min (>60); GLUCOSE 238 mg/dl (70-220); MAGNESIUM 1.8 mg/dl (1.7-2.5); POTASSIUM 4.3 mmol/L (3.5-5.1); SODIUM 140 mmol/L (135-144)
[2018-07-20] MEDS: ALBUTEROL 0.083% (NEB) 2.5 MG/3 ML AMP HHN ×3 (07:31→20:29)
[2018-07-20] MEDS: IPRATROPIUM (NEB) 0.5 MG/2.5 ML AMP INH ×3 (07:31→20:29)
[2018-07-20] MEDS: INSULIN ASPART [NOVOLOG] 3 ML PEN SC ×5 (07:49→21:31)
[2018-07-20] MEDS: CEFEPIME 2GM/50 ML (PMX) 50 ML IVPB ×2 (08:19→21:36)
[2018-07-20] MEDS: METOPROLOL (XL) 100 MG TAB PO (08:20)
[2018-07-20] MEDS: DILTIAZEM 60 MG TAB PO ×3 (08:21→21:29)
[2018-07-20] MEDS: ATORVASTATIN 40 MG TAB PO (08:21)
[2018-07-20] MEDS: RISPERIDONE 1 MG TAB PO ×2 (08:21→21:28)
[2018-07-20] MEDS: APIXABAN 5 MG TABLET PO ×2 (08:21→21:28)
[2018-07-20] MEDS: METHYLPREDNISOLONE 40 MG INJ IV (08:22)
[2018-07-20] MEDS: SALINE 0.65% 45 ML NAS SPRAY NASAL ×2 (08:22→21:36)
[2018-07-20] MEDS: TIOTROPIUM 18 MCG CAPSULE INHA DEV INH (08:22)
[2018-07-20] MEDS: DIGOXIN 0.125 MG TAB PO (08:23)
[2018-07-20] MEDS ORDERED: DIGOXIN 0.125 MG TAB PO (09:00)
[2018-07-20] MEDS: MONTELUKAST 10 MG TAB PO (21:28)
[2018-07-20] MEDS: INSULIN GLARGINE [LANTus] (100 UNITS/ML) SYG SC (21:36)
[2018-07-21] MEDS: INSULIN ASPART [NOVOLOG] 3 ML PEN SC ×6 (01:16→12:23)
[2018-07-21] MEDS: ACCU-CHEK XX (01:34)
[2018-07-21] MEDS ORDERED: ACCU-CHEK XX (02:00)
[2018-07-21 02:46] LABS: ADD UMIC YES; UR ASCORBIC ACID NEGATIVE (NEGATIVE); UR BILIRUBIN (Dip) NEGATIVE (NEGATIVE); UR BLOOD (Dip) 1+ mg/dL (NEGATIVE); UR BUDDING YEAST FEW /HPF (NONE SEEN); UR CLARITY CLEAR (CLEAR); UR COLOR YELLOW (YELLOW); UR GLUCOSE (Dip) 1+ mg/dL (NEGATIVE); UR KETONES (Dip) NEGATIVE (NEGATIVE); UR LEUKOCYTE ESTERASE (Dip) NEGATIVE Leu/ul (NEGATIVE); UR NITRITE (Dip) NEGATIVE (NEGATIVE); UR RBC 3 /HPF (0-5); UR SPECIFIC GRAVITY (Dip) 1.017 (1.003-1.030); UR TOTAL PROTEIN (Dip) NEGATIVE (NEGATIVE); UR UROBILINOGEN (Dip) NEGATIVE (NEGATIVE); UR WBC 2 /HPF (0-5)
[2018-07-21 03:00] LABS: SODIUM,URINE RANDOM 108 mmol/L (30-90)
[2018-07-21 03:00] LABS: CREATININE,URINE RANDOM 60.39 mg/dl (20-320)
[2018-07-21] MEDS: BUMETANIDE 1 MG INJ IV (05:35)
[2018-07-21] MEDS: LEVOTHYROXINE 25 MCG TAB PO (05:35)
[2018-07-21] MEDS: PANTOPRAZOLE (EC) 40 MG TAB PO (05:35)
[2018-07-21 05:54] LABS: ADD MAN DIFF? NO
[2018-07-21 05:59] LABS: WHITE BLOOD COUNT 18.3 10^3/ul (4.8-10.8)
[2018-07-21 05:59] LABS: BASOPHILS % 0.1 % (0.0-2.0); HEMATOCRIT 43.6 % (37.0-47.0); HEMOGLOBIN 12.9 g/dl (12.0-16.0); LYMPHOCYTES # 0.9 10^3/ul (0.8-2.9); MEAN CORPUSCULAR HEMOGLOBIN 24.2 pg (29.0-33.0); MEAN CORPUSCULAR HGB CONC 29.6 g/dl (32.0-37.0); MEAN PLATELET VOLUME 11.9 fl (7.4-10.4); MONOCYTE # 0.9 10^3/ul (0.3-0.9); MONOCYTES % 4.8 % (0.0-11.0); NEUTROPHIL # 16.3 10^3/ul (1.6-7.5); NEUTROPHILS % 89.5 % (39.0-77.0); PLATELET COUNT 207 10^3/UL (140-415); RED BLOOD COUNT 5.32 10^6/ul (4.20-5.40)
[2018-07-21 07:03] LABS: BLOOD UREA NITROGEN 43 mg/dl (7-20); CALCIUM 9.6 mg/dl (8.4-10.2); CHLORIDE 91 mmol/L (97-110); CREATININE 0.99 mg/dl (0.44-1.00); Estimated GFR 59 mL/min (>60); GLUCOSE 147 mg/dl (70-220); MAGNESIUM 1.7 mg/dl (1.7-2.5); PHOSPHORUS 2.9 mg/dl (2.5-4.9); POTASSIUM 4.3 mmol/L (3.5-5.1); SODIUM 139 mmol/L (135-144)
[2018-07-21 07:10] LABS: FREE T4 (FREE THYROXINE) 1.17 ng/dl (0.64-1.79)
[2018-07-21 07:24] LABS: ANION GAP 7 (5-13); CARBON DIOXIDE 41 mmol/L (21-31)
[2018-07-21 07:26] LABS: TRIIODOTHYRONINE 0.57 ng/ml (0.97-1.69)
[2018-07-21] MEDS: IPRATROPIUM (NEB) 0.5 MG/2.5 ML AMP INH ×2 (08:00→13:56)
[2018-07-21] MEDS: ALBUTEROL 0.083% (NEB) 2.5 MG/3 ML AMP HHN ×2 (08:00→13:56)
[2018-07-21] MEDS: CEFEPIME 2GM/50 ML (PMX) 50 ML IVPB (08:37)
[2018-07-21 08:38] LABS: DIGOXIN < 0.4 ng/ml (1.0-2.0)
[2018-07-21] MEDS: METHYLPREDNISOLONE 40 MG INJ IV (08:38)
[2018-07-21] MEDS: APIXABAN 5 MG TABLET PO (08:38)
[2018-07-21] MEDS: RISPERIDONE 1 MG TAB PO (08:39)
[2018-07-21] MEDS: ATORVASTATIN 40 MG TAB PO (08:39)
[2018-07-21] MEDS: DILTIAZEM 60 MG TAB PO ×2 (08:39→12:24)
[2018-07-21] MEDS: METOPROLOL (XL) 100 MG TAB PO (08:39)
[2018-07-21] MEDS: TIOTROPIUM 18 MCG CAPSULE INHA DEV INH (08:40)
[2018-07-21] MEDS: SALINE 0.65% 45 ML NAS SPRAY NASAL (08:40)
[2018-07-21] MEDS: DIGOXIN 0.125 MG TAB PO (08:40)
[2018-07-21] MEDS: ACETAZOLAMIDE 500 MG INJ IV (10:51)
[2018-07-21] MEDS ORDERED: DILTIAZEM 30 MG TAB PO (21:00)
[2018-07-22] MEDS ORDERED: METOPROLOL (XL) 50 MG TAB PO (09:00)
[2018-07-23 15:01] LABS: CREATININE, RANDOM URINE 60 mg/dL (20-275); MICROALBUMIN 1.9 mg/dL; MICROALBUMIN/CREATININE RATIO 32 (<30)
== END 2018-07-21 17:00 | disposition home or self-care (01) | DRG 291 ==
LOC: TEL 16:26
PROVIDERS: Internal Medicine
DX: I11.0 Hypertensive heart disease with heart failure (principal); J96.21 Acute and chronic respiratory failure with hypoxia; J96.22 Acute and chronic respiratory failure with hypercapnia; E66.2 Morbid (severe) obesity with alveolar hypoventilation; Z68.45 Body mass index [BMI] 70 or greater, adult; N17.9 Acute kidney failure, unspecified; J44.1 Chronic obstructive pulmonary disease with (acute) exacerbation; E87.3 Alkalosis; I50.43 Acute on chronic combined systolic (congestive) and diastolic (congestive) heart failure; E78.00 Pure hypercholesterolemia, unspecified; Z59.0 Homelessness; E11.9 Type 2 diabetes mellitus without complications; I48.0 Paroxysmal atrial fibrillation; F99 Mental disorder, not otherwise specified; E03.9 Hypothyroidism, unspecified; Z66 Do not resuscitate; I87.8 Other specified disorders of veins; Z86.73 Personal history of transient ischemic attack (TIA), and cerebral infarction without residual deficits; Z71.3 Dietary counseling and surveillance; Z90.49 Acquired absence of other specified parts of digestive tract; Z91.14 Patient's other noncompliance with medication regimen; Z87.891 Personal history of nicotine dependence; Z79.01 Long term (current) use of anticoagulants
CPT/HCPCS: 71045; 76775; 80048; 80069; 80076; 80162; 81001; 81003; 82043; 82962; 83036; 83605; 83735; 83880; 84100; 84155; 84300; 84439; 84443; 84480; 85025; 90686; 93306; 94640; 94664; 97110; 97116; 97162; 97167; 97530; 97535; J1120